=== PATIENT | female | born 1985 | race Caucasian/White ===

== ENCOUNTER 2021-05-12 09:32 | Emergency (ER) | payer MEDICAID, SELFPAY ==
--- NOTE | ~2021-05-12 | XR_ITS ---
EXAMINATION: XR HAND, RIGHT CLINICAL INFORMATION: Abscess. IVDA. COMPARISON: Left hand films dated 02/08/2019. TECHNIQUE: Four views of the right hand. FINDINGS: Prominent focal soft tissue swelling is seen overlying the dorsum of the hand. There may also be diffuse soft tissue swelling involving the second through fifth digits. No associated radiopaque foreign body is seen. The underlying bony structures are intact and no evidence of acute fracture, dislocation, abnormal periosteal reaction, or focal lytic/destructive bone lesion is seen. XR/XR hand RT 2V IMPRESSION: Prominent soft tissue swelling over the dorsum of the hand and probably diffusely involving the second through fifth digits. No acute bone findings.
[2021-05-12 09:53] VITALS: BP 122/68; PULSE 92; RESP 18; TEMP 36.7; O2SAT 96; BMI 25.6
--- NOTE | 2021-05-12 10:00 | ED_ITS ---
HPI - Skin/Abscess/Foreign Bdy General Chief complaint: Skin/Abscess/Foreign Body Stated complaint: ABSCESS Time Seen by Provider: 05/12/21 09:54 Source: patient Mode of arrival: ambulatory Limitations: no limitations History of Present Illness HPI narrative: 35-year-old female with a past medical history of IV drug abuse here with complaints of right hand swelling and pain for 1 week. Patient feels like she has had subjective fevers and chills at home has not checked her temperature. She is using IV heroin daily. Denies cocaine use. Related Data Previous Rx's Medication Instructions Recorded doxycycline monohydrate 100 mg 100 mg PO BID #20 tab 05/12/21 tablet Allergies Allergy/AdvReac Type Severity Reaction Status Date / Time amoxicillin [AMOXICILLIN] Allergy Unknown UNKNOWN Verified 05/12/21 09:55 Penicillins [PENICILLINS] Allergy Unknown UNKNOWN Unverified 03/30/20 17:08 Review of Systems Review of Systems: Yes all other systems are reviewed and are negative Constitutional: Constitutional: Reports no additional constitutional complaints, Denies body ache(s), Denies chills, Denies fever(s), Denies headache(s) and Denies weakness Eyes: Eyes: Reports no additional eye complaints and Denies change in vision ENT: Reports system reviewed and no additional complaints, except as documented, Denies dizziness, Denies headache(s), Denies nasal congestion, Denies nasal discharge and Denies neck pain Cardiovascular: Cardiovascular: Reports no additional cardiovascular complaints, Denies chest pain, Denies leg edema and Denies dyspnea Respiratory: Respiratory: Reports no additional respiratory complaints, Denies cough and Denies dyspnea Gastrointestinal: Gastrointestinal: Reports no additional gastrointestinal com plaints, Denies abdominal pain, Denies diarrhea, Denies nausea and Denies vomiting Genitourinary: Genitourinary: Reports no additional female genitourinary complaints and Denies urinary incontinence Musculoskeletal: Musculoskeletal: Reports no additional musculoskeletal complaints, Denies back pain, Denies arthralgias, Denies joint swelling, Denies neck pain, Denies numbness and Denies tingling Integumentary/Breasts: Skin/Breast: Reports system reviewed and no additional complaints, except as docu, Reports swelling, Reports erythema and Denies rash Neurologic: Reports system reviewed and no additional complaints, except as documented, Denies Abnormal speech present, Denies dizziness, Denies headache(s), Denies numbness, Denies tingling and Denies weakness PMFSH Past Medical History Attestation statement: The following information was validated with the patient. Source: old records reviewed and nursing notes reviewed Medical History No known health problems Social History Social History Advance Directives: No Advance Directives Information Provided: No Patient : No Physical Exam Vital Signs: Vital Signs: Last Vital Signs Temp 98.0 F 05/12/21 09:53 Pulse 92 05/12/21 09:53 Resp 18 05/12/21 11:36 BP 122/68 05/12/21 09:53 Pulse Ox 96 05/12/21 09:53 Body Mass Index 25.6 Const: General: cooperative, healthy appearing, comfortable and no acute distress Orientation/consciousness: patient oriented x3 Limitations: no limitations HENMT: Head: Yes normal to inspection Ears: hearing grossly normal bilaterally General nose exam: Normal external nose present Face and sinus: Yes normal facial exam Mouth: Normal oral and palatal mucosa present Throat: Yes posterior oropharynx normal Eyes: General: appearance normal, both eyes and all related structures P upils: Equal, round and reactive pupils present Neck: Neck: Yes normal visual inspection Chest: Chest palpation & inspection: normal inspection of the chest Resp: Effort & Inspection: normal respiratory effort Auscultation: clear to auscultation bilaterally Cardio: Rate: regular rate Rhythm: regular rhythm Peripheral pulses: Peripheral pulses 2+ throughout GI: Inspection: Yes normal to inspection Palpation (GI): Soft to palpation and nontender Auscultation: normal bowel sounds Back/Spine/Pelvis: Thoracic/Lumbar Spine: thoracic and lumbar spine normal to inspection Skin: General skin exam: no rashes or lesions noted Neuro: General: patient oriented x3, no focal motor deficits and normal sensation to monofilament Cranial nerves: Yes Equal, round and reactive pupils present Cognition (Neuro): normal cognition Speech: No Abnormal speech present Gait exam (Neuro): Normal gait present Motor exam (neuro): 5/5 motor strength present throughout Extrem: Other: Fluctuance, warmth, to the dorsal aspect of the right hand. Patient is right-hand dominant. Sensation is intact distally. There is slight pain with flexion and extension of the wrist. General: Yes normal to inspecti on, Yes no pedal edema and Yes no calf tenderness Course Course Course Narrative: 35-year-old female here with complaints of right hand pain, swelling and redness with subjective fevers and chills at home. Patient is right-handed with a history of IV drug abuse.. Exam is consistent with an abscess over the dorsal aspect the right hand. There is no pain with flexion and extension of the wrist so less likely tenosynovitis or septic arthritis. Therefore will need I&D of abscess, x-ray to rule out foreign body and p.o. antibiotics 1145-patient met with the care team and she was given outpatient resources for methadone clinic. Not interested in inpatient detox. Recommended return in 48 hours for wound check. Reviewed worrisome signs and symptoms such as streaking of the hand, fever, difficulty with range of motion. Comfortable discharge home. MDM - Skin/Abscess/Foreign Bdy Medical Records Attestation: I reviewed the patient's medical records. Lab Data Attestation: I reviewed the patient's lab results. Imaging Data hand xray: Attestation: I personally reviewed and interpreted this imaging study as follows: Radiologist's impression: FINDINGS: Prominent focal soft tissue swelling is seen overlying the dorsum of the hand. There may also be diffuse soft tissue swelling involving the second through fifth digits. No associated radiopaque foreign body is seen. The underlying bony structures are intact and no evidence of acute fracture, dislocation, abnormal periosteal reaction, or focal lytic/destructive bone lesion is seen. XR/XR hand RT 2V IMPRESSION: Prominent soft tissue swelling over the dorsum of the hand and probably diffusely involving the second through fifth digits. No acute bone findings. Procedures Abscess I/D Site: hand Side (if applicable): right Local Anesthetic: lidocaine 2% Amount of anesthesia used (mL): 5 Technique: incised with blade Amount of fluid expressed (mL): 20 Sent for culture/gram staining?: No Irrigation: No Packing used?: iodoform Discharge Plan Discharge Clinical Impression: Abscess of skin or subcutaneous tissue Patient Disposition: Home, Self-Care Instructions: Abscess (ED) Additional Instructions: Warm compresses Packing removal and wound check in 48 hours Return for increasing redness of the arm, fever greater than 100.4 Prescriptions: New doxycycline monohydrate 100 mg tablet 100 mg PO BID Qty: 20 RF: 0 Referrals: Physician,None [Primary Care Provider] - 2 days
[2021-05-12] MEDS: Lidocaine HCl 2 % MPF 5 ML VIAL SUBCUT (10:04)
[2021-05-12] MEDS: Lidocaine 4 % Cream KIT 1 APPL TOPICAL (10:04)
[2021-05-12] MEDS: Ketorolac Tromethamine 60 MG/2 ML VIAL IM (10:04)
--- NOTE | 2021-05-12 11:29 | MHC.RECOVSUP ---
Recovery Support note: Patient is a 35 year old Israeli speaking female who presented [place] [facility] [place] due to an [place]. This signwriter met with patient to discuss recovery supports and treatment options. Patient reports she was previously receiving methadone through [facility] in [place]. Patient states that the dose was too long and she would still feel withdrawal after dosing. Patient reports the clinic would not raise her dose due to her taking prescribed benzodiazepines. Patient reports she is interested in restarting methadone. Discussed methadone clinics with patient. Patient accepted information on clinics in the area. Discussed outpatient reports supports with patient. Patient reports she is familiar with local recovery centers and that she finds [facility] to be very supportive. Encouraged patient to continue to utilize supports in place and to contact methadone clinics on Friday morning or present as a walk-in. Patient acknowledged. Discussed case with patient's ED provider.
[2021-05-12 11:36] VITALS: RESP 18
== END 2021-05-12 12:08 | disposition home or self-care (01) ==
PROVIDERS: Emergency Provider Emergency Medicine
DX: L02.511 Cutaneous abscess of right hand (principal); F11.10 Opioid abuse, uncomplicated; Z79.899 Other long term (current) drug therapy
CPT/HCPCS: 10060; 73120; 96372; 99283; 99284; J1885

== ENCOUNTER 2021-06-04 19:50 | Emergency (ER) | payer MEDICAID, SELFPAY ==
--- NOTE | ~2021-06-04 | XR_ITS ---
EXAMINATION: XR FOREARM, RIGHT CLINICAL INFORMATION: History of intravenous drug use with a right antecubital abscess. Rule out foreign body. COMPARISON: No similar priors. TECHNIQUE: AP and lateral views of the right forearm were obtained. FINDINGS: In the anterior aspect of the distal arm at about 7 cm from the elbow joint there is a 0.3 cm radiodense body situated at 0.2 cm from the cortical surface of the distal humerus. No evidence of acute fractures or malalignment. There is diffuse soft tissue edema. XR/XR forearm RT 2V IMPRESSION: Indeterminate radiopaque body within the deep soft tissues of the distal arm, possibly a soft tissue calcification from prior trauma or vasculature. Although a foreign body cannot be entirely excluded. There is diffuse soft tissue edema. No acute fractures or malalignment.
[2021-06-04 19:57] VITALS: BP 138/90; PULSE 80
[2021-06-04 21:40] VITALS: BP 120/77; PULSE 79; RESP 18; TEMP 36.8; O2SAT 98; BMI 29.2
--- NOTE | 2021-06-04 22:36 | ED_ITS ---
HPI - General Adult General Chief complaint: Skin/Abscess/Foreign Body Stated complaint: rt arm Time Seen by Provider: 06/04/21 22:23 Source: patient and EMS Mode of arrival: EMS Limitations: no limitations History of Present Illness HPI narrative: 35-year-old female history of alcohol abuse, IV drug abuse patient came in from detox program for evaluation of her right forearm abscess from attempt to IV use in this area, patient also drink alcohol every day last drink was yesterday patient is suffering from withdrawal symptoms. Related Data Previous Rx's Medication Instructions Recorded doxycycline monohydrate 100 mg 100 mg PO BID #20 tab 05/12/21 tablet clindamycin HCl 150 mg capsule 150 mg PO TID 10 Days #30 cap 06/05/21 Allergies Allergy/AdvReac Type Severity Reaction Status Date / Time amoxicillin [AMOXICILLIN] Allergy Unknown UNKNOWN Verified 05/12/21 09:55 Penicillins [PENICILLINS] Allergy Unknown UNKNOWN Unverified 03/30/20 17:08 Review of Systems Review of Systems: All other systems are reviewed and are negative Constitutional: Reports as per HPI and Reports no additional constitutional complaints Eyes: Reports as per HPI and Reports no additional eye complaints Reports system reviewed and no additional complaints, except as documented Cardiovascular: Reports as per HPI and Reports no additional cardiovascular complaints Respiratory: Reports as per HPI and Reports no additional respiratory complaints Gastrointestinal: Reports as per HPI and Reports no additional gastrointestinal complaints Genitourinary: Reports no additional female genitourinary complaints Musculoskeletal: Reports no additional musculoskeletal complaints Skin/Breast: Reports system reviewed and no additional complaints, except as docu Psychiatric: Reports no additional psychiatric complaints Endocrine: Reports no additional endocrine complaints Hematologic/Lymphatic: Reports no additional hematologic/lymphatic complaints Allergic/Immunologic: Reports no additional allergic/immunologic complaints Reports system reviewed and no additional complaints, except as documented and Reports Abnormal speech present [facility] Past Medical History Medical History No known health problems Social History Social History Alcohol intake: current Alcohol intake frequency: does not drink Patient Tobacco Use Status: Never used Tobacco Use of substances other than those prescribed or required for medical reasons: No Advance Directives: No Patient : No Physical Exam Vital Signs: Vital Signs: Last Vital Signs Temp 98.4 F 06/04/21 22:55 Pulse 90 06/04/21 22:55 Resp 14 06/04/21 22:55 BP 121/75 06/04/21 22:55 Pulse Ox 96 06/04/21 22:55 Body Mass Index 29.2 vital signs have been reviewed as appeared to be correct. Blood pressure normal. Heart rate normal. Respiration rate normal. Temperature normal. Oxygen saturation normal. Appearance: Alert. Oriented X3. Anxious. Head: Normal external exam. Normocephalic. Atraumatic. No Moon signs noted. No raccoon eyes noted Eyes: PERRLA. EOMI. Conjunctiva and sclera normal. Eyelids normal. ENT: Right erythematous TM.. Pharynx normal. Uvula midline. Moist mucous membranes. No trismus noted. No drooling noted. No muffled voice noted. Neck: Normal inspection. Neck supple. FROM. No adenopathy. Thyroid Normal. No meningeal signs. No neck mass noted. CVS: Normal heart rate and rhythm. Heart sound normal. No murmurs noted. Pulses normal throughout. Respiratory: No respiratory distress. Painless inspiration. Breath sounds normal. No wheezes/rales/rhonchi noted. Chest nontender. No accessory muscle usage noted or decreased air movement noted. Abdomen: Soft and nontender. Bowel sounds normal in all 4 quadrants. No distention noted. No organomegaly noted. No visible injury noted. Back: No CVA tenderness. Full range of motion noted. Skin: Skin warm and dry. Normal skin color. Normal skin turgor. No rashes/lesions/lacerations noted. Extremities: IV perez in both upper extremities, 3 x 4 cm fluctuating abscess in the right forearm on the radial side just distal to the antecubital fossa. Neuro: Oriented X 3. Anxious, mild bilateral hand tremors. Cranial nerve exam: II-XII are grossly intact No motor deficit. No sensory deficit. Reflexes normal. Course Course Course Narrative: assessment and plan. 35-year-old female history of alcohol abuse/ IV drug abuse came in with right forearm abscess, x-ray questioning foreign body versus calcification, patient status post I&D no palpable or visible foreign body in the wound please refer to procedure note, patient will be started on clindamycin due to allergy to penicillins and doxycycline. Patient is showing mild symptoms of alcohol withdrawal patient is responding well to Ativan, detox At [facility] is willing to take the patient back if she is medically cleared. Physical exam also revealed a right ear infection which should be covered by clindamycin prescribed to the patient. Procedures Abscess I/D Site: upper extremity ( The right upper forearm distal to the AC at the radial side.) Side (if applicable): right Local Anesthetic: lidocaine 1% Amount of anesthesia used (mL): 5 Technique: incised with blade Amount of fluid expressed (mL): 3 Sent for culture/gram staining?: No Irrigation: No Packing used?: none Discharge Plan Discharge Clinical Impression: Abscess of skin or subcutaneous tissue Qualifiers: Site of cutaneous abscess of extremity: upper extremity Laterality: right Patient Disposition: Xfer [facility] Transfer Details: [place] detox. Instructions: Abscess (ED), Alcohol Withdrawal (ED) Prescriptions: New clindamycin HCl 150 mg capsule 150 mg PO TID 10 Days Qty: 30 RF: 0 No Action doxycycline monohydrate 100 mg tablet 100 mg PO BID Qty: 20 RF: 0 Referrals: Physician,Unknown J [Primary Care Provider] - 2 days
[2021-06-04] MEDS: LORazepam 1 MG TABLET PO (22:44)
[2021-06-04] MEDS: Lidocaine HCl 1 % MPF 5 ML VIAL SUBCUT (22:44)
--- NOTE | 2021-06-04 22:46 | PC.NURSE ---
pt medicated per Sep. pt has positive cms. pt a&o, no sob or chest pain.
[2021-06-04 22:55] VITALS: BP 121/75; PULSE 90; RESP 14; TEMP 36.9; O2SAT 96
[2021-06-05 00:17] VITALS: RESP 20
--- NOTE | 2021-06-05 00:18 | PC.NURSE ---
Several attempts to call report to emigdio richardson in [facility]. No answer. Will discharge per provider. Will review discharge instruction and medications. Will medicate per sep.
--- NOTE | 2021-06-05 00:20 | PC.NURSE ---
call made at 12:00am and 12:15am with no answer.
[2021-06-05] MEDS: LORazepam 1 MG TABLET 2 MG PO (01:08)
[2021-06-05] MEDS: Clindamycin HCL 300 MG CAPSULE PO (01:08)
== END 2021-06-05 01:36 | disposition skilled nursing facility (03) ==
PROVIDERS: Emergency Provider Emergency Medicine
DX: L02.413 Cutaneous abscess of right upper limb (principal); F19.10 Other psychoactive substance abuse, uncomplicated
CPT/HCPCS: 10060; 73090; 99284

== ENCOUNTER 2021-07-23 13:16 | Emergency (ER) | payer MEDICAID, SELFPAY ==
--- NOTE | ~2021-07-23 | XR_ITS ---
EXAMINATION: XR ANKLE, LEFT CLINICAL INFORMATION: Status post fall with pain to left ankle. COMPARISON: None TECHNIQUE: AP, lateral, and mortise views of the left ankle. FINDINGS: There is oblique minimally displaced fracture distal fibula with moderate lateral malleolar soft tissue swelling. No additional fractures seen. Ankle mortise and subtalar joints are normal. XR/XR ankle LT min 3V IMPRESSION: Oblique fracture distal fibula with moderate lateral malleolar soft tissue swelling.
[2021-07-23 13:20] VITALS: BP 120/70; PULSE 86; O2SAT 99
[2021-07-23 14:17] VITALS: PULSE 92; RESP 18; O2SAT 99; BMI 32.9
--- NOTE | 2021-07-23 18:14 | ED_ITS ---
HPI - Extremity Injury (Lower) General Chief Complaint: Extremity Injury, Lower Stated Complaint: L ANKLE INJURY FROM FALL T-1 Time Seen by Provider: 07/23/21 13:34 Source: patient Mode of arrival: ambulatory Limitations: no limitations History of Present Illness HPI Narrative: 35-year-old female here after slip and fall on the ice yesterday causing an inversion injury to her left ankle. No head strike or loss of consciousness. Now with pain which is worsened with weight-bearing. Patient tells me she has history of IVDA but has been sober >2 months. Related Data Previous Rx's Medication Instructions Recorded doxycycline monohydrate 100 mg 100 mg PO BID #20 tab 05/12/21 tablet clindamycin HCl 150 mg capsule 150 mg PO TID 10 Days #30 cap 06/05/21 ibuprofen 600 mg tablet 600 mg PO Q8H PRN #20 tab 07/23/21 oxycodone 5 mg tablet 5 mg PO Q8H PRN #8 tab 07/23/21 Allergies Allergy/AdvReac Type Severity Reaction Status Date / Time amoxicillin [AMOXICILLIN] Allergy Unknown UNKNOWN Verified 07/23/21 18:56 Penicillins [PENICILLINS] Allergy Unknown UNKNOWN Verified 07/23/21 18:56 Review of Systems Review of Systems: Yes all other systems are reviewed and are negative Constitutional: Constitutional: Reports no additional constitutional complaints, Denies body ache(s), Denies chills, Denies fever(s), Denies headache(s) and Denies weakness Eyes: Eyes: Reports no additional eye complaints and Denies change in vision ENT: Reports system reviewed and no additional complaints, except as documented, Denies dizziness, Denies headache(s), Denies nasal congestion, Denies nasal discharge and Denies neck pain Cardiovascular: Cardiovascular: Reports no additional cardiovascular complaints, Denies chest pain, Denies leg edema and Denies dyspnea Respiratory: Respiratory: Reports no additional respiratory complaints, Denies cough and Denies dyspnea Gastrointestinal: Gastrointestinal: Reports no additional gastrointestinal c omplaints, Denies abdominal pain, Denies diarrhea, Denies nausea and Denies vomiting Genitourinary: Genitourinary: Reports no additional female genitourinary complaints and Denies urinary incontinence Musculoskeletal: Musculoskeletal: Reports no additional musculoskeletal complaints, Denies back pain, Reports arthralgias, Reports joint swelling, Denies neck pain, Denies numbness and Denies tingling Integumentary/Breasts: Skin/Breast: Reports system reviewed and no additional complaints, except as docu and Denies rash Neurologic: Reports system reviewed and no additional complaints, except as documented, Denies Abnormal speech present, Denies dizziness, Denies headache(s), Denies numbness, Denies tingling and Denies weakness PMFSH Past Medical History Attestation statement: The following information was validated with the patient. Source: old records reviewed and nursing notes reviewed Medical History No known health problems Social History Social History Alcohol intake: current Alcohol intake frequency: does not drink Patient Tobacco Use Status: Never used Tobacco Advance Directives: No Advance Directives Information Provided: Yes Patient : No Physical Exam Vital Signs: Vital Signs: Last Vital Signs Pulse 92 07/23/21 14:17 Resp 18 07/23/21 14:17 Pulse Ox 99 07/23/21 14:17 BMI result Body Mass Index 32.9 Const: General: cooperative, healthy appearing, comfortable and no acute distress Orientation/consciousness: patient oriented x3 Limitations: no limitations HENMT: Head: Yes normal to inspection Ears: hearing grossly normal bilaterally General nose exam: Normal external nose present Face and sinus: Yes normal facial exam Mouth: Normal oral and palatal mucosa present Throat: Yes posterior oropharynx normal Eyes: General: appearance normal, both eyes and all related structures Pupils: Equal, round and reactive pupils present Neck: Neck: Yes normal visual inspection Chest: Chest palpation & inspection: normal inspection of the chest Resp: Effort & Inspection: normal respiratory effort Auscultation: clear to auscultation bilaterally Cardio: Rate: regular rate Rhythm: regular rhythm Peripheral pulses: Peripheral pulses 2+ throughout GI: Inspection: Yes normal to inspection Palpation (GI): Soft to palpation and nontender Auscultation: normal bowel sounds Back/Spine/Pelvis: Thoracic/Lumbar Spine: thoracic and lumbar spine normal to inspection Skin: General skin exam: no rashes or lesions noted Neuro: General: patient oriented x3, no focal motor deficits and normal sensation to monofilament Cranial nerves: Yes Equal, round and reactive pupils present Cognition (Neuro): normal cognition Speech: No Abnormal speech present Gait exam (Neuro): Normal gait present Motor exam (neuro): 5/5 motor strength present throughout Extrem: Other: Swelling, tenderness, ecchymosis to lateral aspect of left ankle with limited ROM d/t pain. +pulses. NV intact distally. General: Yes normal to inspection Course Course Course Narrative: 35 yo female here with L ankle pain s/p slip and fall with swelling, pain and ecchymosis with limited weight bearing. X-ray shows oblique fracture of distal fibula. Will place in posterior/stirrup splint, crutches for ambulation. Patient has h/o IVDA but is currently sober. We discussed using narcotics at home carefully, trying to use motrin first. She does not plan on using drugs. Recommend follow-up outpatient with orthopedics. Reviewed worrisome signs and symptoms of when to return to the emergency department. Comfortable discharge home. MDM - Extremity Injury (Lower) Differential Diagnosis Differential diagnosis: Likely ankle sprain and strain and ankle fracture Medical Records Attestation: I reviewed the patient's medical records. Lab Data Attestation: I reviewed the patient's lab results. Imaging Data ankle x-ray: Attestation: I personally reviewed and interpreted this imaging study as follows: Radiologist's impression: EXAMINATION: XR ANKLE, LEFT CLINICAL INFORMATION: Status post fall with pain to left ankle.? COMPARISON: None? TECHNIQUE: AP, lateral, and mortise views of the left ankle. FINDINGS: There is oblique minimally displaced fracture distal fibula with moderate lateral malleolar soft tissue swelling. No additional fractures seen. Ankle mortise and subtalar joints are normal.? XR/XR ankle LT min 3V IMPRESSION: Oblique fracture distal fibula with moderate lateral malleolar soft tissue swelling. Procedures Orthopedic Splinting/Casting Injury #1: Side: left Lower Extremity Injury Location: lower leg Lower Extremity Immobilizer: posterior splint and stirrup splint Other Orthopedic Equipment: crutches Discharge Plan Discharge Clinical Impression: Closed fibular fracture Qualifiers: Encounter type: initial encounter Fibula location: distal Laterality: left Patient Disposition: Home, Self-Care Instructions: Leg Fracture (ED) Additional Instructions: Splint stays on all times. Do not get it wet. Do not ambulate on the extremity and use the crutches with nonweightbearing You have a lot of swelling and a need to start elevating this daily on 3 or more pillows Call Orthopedics for follow-up this week Prescriptions: New ibuprofen 600 mg tablet 600 mg PO Q8H PRN (Reason: pain) Qty: 20 RF: 0 oxycodone 5 mg tablet 5 mg PO Q8H PRN (Reason: pain) Qty: 8 RF: 0 No Action doxycycline monohydrate 100 mg tablet 100 mg PO BID Qty: 20 RF: 0 clindamycin HCl 150 mg capsule 150 mg PO TID 10 Days Qty: 30 RF: 0 Referrals: Raymond Pierce MD [Physician] - 2 days Interventions: ED Discharge Assessment Last Done: 07/23/21 19:44 Discharge Date/Time: 07/23/21 19:44
[2021-07-23] MEDS: Ketorolac Tromethamine 60 MG/2 ML VIAL IM (18:57)
== END 2021-07-23 19:44 | disposition home or self-care (01) ==
PROVIDERS: Emergency Provider Emergency Medicine
DX: S82.432A Displaced oblique fracture of shaft of left fibula, initial encounter for closed fracture (principal); W00.0XXA Fall on same level due to ice and snow, initial encounter; Y93.01 Activity, walking, marching and hiking; Y92.9 Unspecified place or not applicable; Y99.9 Unspecified external cause status
CPT/HCPCS: 29515; 73610; 96372; 99283; 99284; J1885

== ENCOUNTER 2022-01-24 01:11 | Emergency (ER) | payer MEDICAID, SELFPAY ==
[2022-01-24 01:16] VITALS: BP 116/66; PULSE 77; RESP 15; TEMP 36.4; O2SAT 97; BMI 29.2
--- NOTE | 2022-01-24 02:05 | ED_ITS ---
HPI - General Adult General Chief complaint: General Medical Stated complaint: Arms/hands pain Time Seen by Provider: 01/24/22 02:05 Source: patient Mode of arrival: ambulatory Limitations: no limitations History of Present Illness HPI narrative: Patient's history of substance abuse comes here for multiple complaints nonspecific complaining of bilateral arm pain when she takes a deep breath IVDA perez noticed on the forearms no fever no chills no distress at this time Related Data Previous Rx's Medication Instructions Recorded doxycycline monohydrate 100 mg 100 mg PO BID #20 tabs 05/12/21 tablet clindamycin HCl 150 mg capsule 150 mg PO TID 10 days #30 caps 06/05/21 ibuprofen 600 mg tablet 600 mg PO Q8H PRN pain #20 tabs 07/23/21 oxycodone 5 mg tablet 5 mg PO Q8H PRN pain #8 tabs 07/23/21 cephalexin 500 mg capsule 500 mg PO QID 10 days #40 caps 01/24/22 sulfamethoxazole 800 1 tab PO BID #20 tabs 01/24/22 mg-trimethoprim 160 mg tablet (Bactrim DS) Allergies Allergy/AdvReac Type Severity Reaction Status Date / Time amoxicillin [AMOXICILLIN] Allergy Unknown UNKNOWN Verified 07/23/21 18:56 Penicillins [PENICILLINS] Allergy Unknown UNKNOWN Verified 07/23/21 18:56 doxycycline Allergy Gastrointestinal Verified 01/24/22 01:23 Upset Review of Systems Review of Systems: Yes all other systems are reviewed and are negative [facility] Past Medical History Medical History No known health problems Social History Social History Alcohol intake: current Alcohol intake frequency: does not drink Patient Tobacco Use Status: Never used Tobacco Advance Directives: No Physical Exam ED Vital Signs: Vital Signs - 24 hr 01/24/22 01:16 01/24/22 02:12 Temperature 97.5 F 98.2 F Pulse Rate 77 70 Respiratory Rate 15 16 Blood Pressure 116/66 93/62 Pulse Oximetry 97 98 Oxygen Delivery Method Room Air Room Air BMI result Body Mass Index 29.2 Appearance: Alert. Oriented X3. No acute distress. ENT: Pharynx normal. Oral Mucosa moist Neck: Normal inspection. Neck supple. CVS: Normal heart rate and rhythm. Pulses normal. Respiratory: No respiratory distress. Equal air entry bilateral, no wheezing/rales/rhonchi Skin: Skin warm and dry. Normal skin color. Normal skin turgor. Abdomen: Soft nontender Extremities: No lower extremity edema. IVDA track perez on both forearms with slight inflammation specially on the right side Neuro: Oriented X 3. Medical Decision Making MDM Narrative Medical decision making narrative: Patient IVDA user comes for nonspecific complaints slight cellulitis on the right hand will discharge patient home on Keflex Discharge Plan Discharge Clinical Impression: Anxiety, Cellulitis Patient Disposition: Home, Self-Care Instructions: Cellulitis (ED), Anxiety (ED) Additional Instructions: Stop using drugs and alcohol Antibiotic as advised Follow with PCP Prescriptions: New cephalexin 500 mg capsule 500 mg PO QID 10 Days Qty: 40 0RF sulfamethoxazole-trimethoprim [Bactrim DS] 800-160 mg tablet 1 tab PO BID Qty: 20 0RF No Action doxycycline monohydrate 100 mg tablet 100 mg PO BID Qty: 20 0RF clindamycin HCl 150 mg capsule 150 mg PO TID 10 Days Qty: 30 0RF ibuprofen 600 mg tablet 600 mg PO Q8H PRN (Reason: pain) Qty: 20 0RF oxycodone 5 mg tablet 5 mg PO Q8H PRN (Reason: pain) Qty: 8 0RF Interventions: ED Discharge Assessment Last Done: 01/24/22 02:43 Discharge Date/Time: 01/24/22 02:45
[2022-01-24 02:12] VITALS: BP 93/62; PULSE 70; RESP 16; TEMP 36.8; O2SAT 98
--- NOTE | 2022-01-24 02:28 | PC.NURSE ---
PATIENT ASK FOR GINGERALE AND CRACKERS ,AND A SANDWICH .
[2022-01-24] MEDS: cephALEXin 500 MG CAPSULE PO (02:39)
[2022-01-24] MEDS: Sulfamethox/Trimeth 800/160 TABLET 1 TAB PO (02:39)
[2022-01-24] MEDS: hydrOXYzine HCL 50 MG TABLET PO (02:41)
== END 2022-01-24 02:45 | disposition home or self-care (01) ==
PROVIDERS: Emergency Provider Internal Medicine
DX: L03.113 Cellulitis of right upper limb (principal); M79.601 Pain in right arm; M79.602 Pain in left arm; F41.1 Generalized anxiety disorder; F43.0 Acute stress reaction; Z79.899 Other long term (current) drug therapy
CPT/HCPCS: 99283

== ENCOUNTER 2022-06-09 10:23 | Emergency (ER) | payer MEDICAID, SELFPAY ==
--- NOTE | ~2022-06-09 | XR_ITS ---
EXAMINATION: XR HAND, LEFT CLINICAL INFORMATION: Pain. Question abscess COMPARISON: None TECHNIQUE: PA, lateral, and oblique views of the left hand. FINDINGS: There is significant dorsal hand soft tissue swelling with no gas seen. Visualized bones and joints are maintained normal. The soft tissues are normal.. XR/XR hand LT min 3V IMPRESSION: Moderate dorsal hand soft tissue swelling without any visualization of gas.
[2022-06-09 11:37] VITALS: BP 113/56; PULSE 95; RESP 16; TEMP 36.1; O2SAT 98; BMI 29.2
--- NOTE | 2022-06-09 11:44 | ED.GENADULT ---
HPI - General Adult General Chief complaint: Extremity Problem Stated complaint: absess on L hand Time Seen by Provider: 06/09/22 17:44 Source: patient Mode of arrival: ambulatory Limitations: no limitations Related Data Previous Rx's Medication Instructions Recorded doxycycline monohydrate 100 mg 100 mg PO BID #20 tabs 05/12/21 tablet clindamycin HCl 150 mg capsule 150 mg PO TID 10 days #30 caps 06/05/21 ibuprofen 600 mg tablet 600 mg PO Q8H PRN pain #20 tabs 07/23/21 oxycodone 5 mg tablet 5 mg PO Q8H PRN pain #8 tabs 07/23/21 cephalexin 500 mg capsule 500 mg PO QID 10 days #40 caps 01/24/22 sulfamethoxazole 800 1 tab PO BID #20 tabs 01/24/22 mg-trimethoprim 160 mg tablet (Bactrim DS) clindamycin HCl 150 mg capsule 450 mg PO Q8H 5 days #45 caps 06/09/22 ibuprofen 600 mg tablet 600 mg PO Q6H PRN pain #60 tabs 06/09/22 Allergies Allergy/AdvReac Type Severity Reaction Status Date / Time amoxicillin [AMOXICILLIN] Allergy Unknown UNKNOWN Verified 07/23/21 18:56 Penicillins [PENICILLINS] Allergy Unknown UNKNOWN Verified 07/23/21 18:56 doxycycline Allergy Gastrointestinal Verified 01/24/22 01:23 Upset PMFSH Past Medical History Medical History No known health problems Social History Social History Alcohol intake: current Alcohol intake frequency: does not drink Patient Tobacco Use Status: Never used Tobacco Advance Directives: No Advance Directives Information Provided: No Physical Exam ED Vital Signs: Vital Signs - 24 hr 06/09/22 19:35 Temperature 98.4 F Pulse Rate 97 Respiratory Rate 18 Blood Pressure 128/58 L Pulse Oximetry 96 Oxygen Delivery Method Room Air BMI result Body Mass Index 29.2 Course Course Course Narrative: RME performed by myself, Marina Carpenter PA-C. Patient is a 36 year old female IVDU presenting to the emergency department with left hand swelling. Patient's left hand is obviously abscessed with surrounding cellulitis. CBC, CMP, Blood cultures, and lactic acid ordered. Charge nurse made aware of patient acuity. Patient placed back in the waiting room pending bed availability. Patient seen and discharged by JAMIL Gerardo who created and completed a separate note. Medications Administered Discontinued Medications Generic Name Dose Route Start Last Admin Trade Name Freq PRN Reason Stop Dose Admin Clindamycin HCl 450 mg 06/09/22 19:02 06/09/22 19:49 Clindamycin Hcl 150 Mg Capsule PO 06/09/22 19:03 450 mg ONCE ONE Administration Ibuprofen 600 mg 06/09/22 19:11 06/09/22 19:20 Ibuprofen 600 Mg Tablet PO 06/09/22 19:12 600 mg ONCE ONE Administration Lidocaine HCl 2 ml 06/09/22 17:52 06/09/22 18:24 Lidocaine Hcl 2% 2 Ml Vial INFILTRATI 06/09/22 17:53 2 ml ONCE ONE Administration Lorazepam 2 mg 06/09/22 17:52 06/09/22 18:23 Lorazepam 1 Mg Tablet PO 06/09/22 17:53 2 mg ONCE ONE Administration Discharge Plan Discharge Clinical Impression: Cellulitis, Encounter for incision and drainage procedure Patient Disposition: Home, Self-Care Instructions: Cellulitis (ED), Abscess (ED), Abscess Follow-up (ED), Abscess Incision and Drainage (DC) Additional Instructions: You were evaluated for abscess to the left hand. We incised and drained this abscess. You asked us to stop the procedure before packing. Please take clindamycin 450 mg every 8 hours for the next 5 days. Take Motrin 600 mg every 8 hours as needed for pain management. Follow-up with detox. Thank you for choosing this emergency department for evaluation. Please follow-up with primary care physician as needed. Return to the emergency department for any new, concerning, or worsening symptoms. Prescriptions: New clindamycin HCl 150 mg capsule 450 mg PO Q8H 5 Days Qty: 45 0RF ibuprofen 600 mg tablet 600 mg PO Q6H PRN (Reason: pain) Qty: 60 0RF No Action doxycycline monohydrate 100 mg tablet 100 mg PO BID Qty: 20 0RF clindamycin HCl 150 mg capsule 150 mg PO TID 10 Days Qty: 30 0RF ibuprofen 600 mg tablet 600 mg PO Q8H PRN (Reason: pain) Qty: 20 0RF oxycodone 5 mg tablet 5 mg PO Q8H PRN (Reason: pain) Qty: 8 0RF cephalexin 500 mg capsule 500 mg PO QID 10 Days Qty: 40 0RF sulfamethoxazole-trimethoprim [Bactrim DS] 800-160 mg tablet 1 tab PO BID Qty: 20 0RF Interventions: ED Discharge Assessment Last Done: 06/09/22 19:52 Discharge Date/Time: 06/09/22 19:54
--- NOTE | 2022-06-09 17:51 | ED.EXTPRO ---
HPI - Extremity Problem General Chief complaint: Extremity Problem Stated complaint: absess on L hand Time Seen by Provider: 06/09/22 17:44 Source: patient Mode of arrival: ambulatory Limitations: no limitations History of Present Illness HPI Narrative: 36-year-old female presents for 3 days of left hand swelling and cellulitis. Patient infiltrated heroin to the site. Does not report any risk of foreign body. Patient is interested in detox at this time. MD Complaint: extremity pain and extremity swelling Onset (ago): day(s) (3) Pain Consistency: constant Location: left and upper extremity Severity scale (1-10): 10 Quality: aching Radiation: none Relieving factors: nothing Exacerbating factors: range of motion, exertion and palpation Associated symptoms: denies other symptoms Related Data Previous Rx's Medication Instructions Recorded doxycycline monohydrate 100 mg 100 mg PO BID #20 tabs 05/12/21 tablet clindamycin HCl 150 mg capsule 150 mg PO TID 10 days #30 caps 06/05/21 ibuprofen 600 mg tablet 600 mg PO Q8H PRN pain #20 tabs 07/23/21 oxycodone 5 mg tablet 5 mg PO Q8H PRN pain #8 tabs 07/23/21 cephalexin 500 mg capsule 500 mg PO QID 10 days #40 caps 01/24/22 sulfamethoxazole 800 1 tab PO BID #20 tabs 01/24/22 mg-trimethoprim 160 mg tablet (Bactrim DS) clindamycin HCl 150 mg capsule 450 mg PO Q8H 5 days #45 caps 06/09/22 ibuprofen 600 mg tablet 600 mg PO Q6H PRN pain #60 tabs 06/09/22 Allergies Allergy/AdvReac Type Severity Reaction Status Date / Time amoxicillin [AMOXICILLIN] Allergy Unknown UNKNOWN Verified 07/23/21 18:56 Penicillins [PENICILLINS] Allergy Unknown UNKNOWN Verified 07/23/21 18:56 doxycycline Allergy Gastrointestinal Verified 01/24/22 01:23 Upset Review of Systems Review of Systems: Constitutional: No Fever, No Chills ENT/Mouth: No Ear Pain, No Hoarseness, No sore throat Eyes: No Eye Pain, No Swelling, No Redness, No Foreign Body Cardiovascular: No Chest Pain, No SOB Respiratory: No Cough, No Dyspnea Gastrointestinal: No Nausea, No Vomiting, No Diarrhea, No abdominal Pain Genitourinary: No Dysuria, No Hematuria Musculoskeletal: positive left hand pain, No Myalgias, No Joint Swelling Skin: Positive left hand abscess and cellulitis, No Skin lacerations, No rash Neuro: No Weakness, No Numbness, No Paresthesias, No Loss of Consciousness, No Dizziness, No Headache Psych: No Anxiety/Panic, No Depression Heme/Lymph: no easy bruising, no Lymphadenopathy Endocrine: No Polyuria, No Polydipsia Yes all other systems are reviewed and are negative [facility] Past Medical History Attestation statement: The following information was validated with the patient. Source: old records reviewed Medical History No known health problems Social History Social History Alcohol intake: current Alcohol intake frequency: does not drink Patient Tobacco Use Status: Never used Tobacco Advance Directives: No Advance Directives Information Provided: No Physical Exam Vital Signs: Vital Signs: Last Vital Signs Temp 97.0 F 06/09/22 11:37 Pulse 95 06/09/22 11:37 Resp 16 06/09/22 11:37 BP 113/56 L 06/09/22 11:37 Pulse Ox 98 06/09/22 11:37 O2 Del Method 06/09/22 11:37 BMI result Body Mass Index 29.2 Appearance: Alert. Oriented X3. Anxiety, emotional distress. Eyes: Pupils equal, round and reactive to light. ENT: Pharynx normal. Neck: Normal inspection. Neck supple. CVS: Normal heart rate and rhythm. Pulses normal. Respiratory: No respiratory distress. Breath sounds normal. Abdomen: Soft and nontender. Skin: Abscess and induration measuring approximately 5 cm in diameter between the thumb and index finger on the dorsal aspect of the left hand. Skin warm and dry. Normal skin color. Normal skin turgor. Multiple fresh track perez to both arms Extremities: No lower extremity edema. Full range of motion to all digits. Full range of motion to wrist and elbow. Brisk capillary refill, equal pulses. Neuro: No motor deficit. No sensory deficit. Cranial nerves 2-12 intact. Course Course Course Narrative: 36-year-old female presents for abscess to the left hand. She infiltrated heroin about 3 days ago, noted redness and swelling, the pain is increased as well as the swelling. Patient states to be allergic to ?all antibiotics? and the last antibiotics that she received, ?big white pill, and green and blue pill caused a rash, she does not recall the name. She does know that she is allergic to penicillin, doxycycline and Keflex. Patient states to have significant anxiety, requesting Ativan 2 mg prior to I&D. Patient is not forthcoming with the amount of heroin that she uses on a daily basis. Patient is afebrile, appears nontoxic, with hemodynamically stable vital signs. X-rays negative for acute findings, ruling out osteo in foreign body. 18:50 patient prepped and draped in sterile fashion, patient crying and screaming prior to starting the procedure. Approximately 60 mL of purulent fluid expressed from the site. Patient screamed cried and kicked the wall throughout the entire procedure. Two RNs holding her hand. Patient wanted to stop mid procedure, and declined iodoform packing. Patient stated that she is interested in detox. I did reach out to the care team will consult with her. Will treat her with clindamycin. Patient is asking for muscle relaxers, pain management that is stronger than Tylenol or Motrin, and states that she is in 10/10 pain. I did offer her Tylenol, she requested Motrin which was 1 of her more reasonable requests. Order for Motrin 600 mg p.o.. Patient verbalized understanding of and agrees to plan of care discharge home. Verbalized understanding symptoms indicating need for emergent intervention Medications Administered Discontinued Medications Generic Name Dose Route Start Last Admin Trade Name Gabbie PRN Reason Stop Dose Admin Lidocaine HCl 2 ml 06/09/22 17:52 06/09/22 18:24 Lidocaine Hcl 2% 2 Ml Vial INFILTRATI 06/09/22 17:53 2 ml ONCE ONE Administration Lorazepam 2 mg 06/09/22 17:52 06/09/22 18:23 Lorazepam 1 Mg Tablet PO 06/09/22 17:53 2 mg ONCE ONE Administration MDM - Extremity (Nontraumatic) MDM Narrative Medical decision making narrative: Abscess, foreign body Differential Diagnosis Differential diagnosis: Likely cellulitis Medical Records Attestation: I reviewed the patient's medical records. Imaging Data Hand x-ray: Attestation: I personally reviewed and interpreted this imaging study as follows: Radiologist's impression: EXAMINATION: XR HAND, LEFT CLINICAL INFORMATION: Pain. Question abscess? COMPARISON: None? TECHNIQUE: PA, lateral, and oblique views of the left hand. FINDINGS: There is significant dorsal hand soft tissue swelling with no gas seen. Visualized bones and joints are maintained normal. The soft tissues are normal.. XR/XR hand LT min 3V IMPRESSION: Moderate dorsal hand soft tissue swelling without any visualization of gas. Procedures Abscess I/D Site: hand Side (if applicable): left Local Anesthetic: lidocaine 2% Amount of anesthesia used (mL): 2 Technique: incised with blade Amount of fluid expressed (mL): 60 Sent for culture/gram staining?: Yes Irrigation: No Packing used?: none Complications: pain Discharge Plan Discharge Clinical Impression: Cellulitis, Encounter for incision and drainage procedure Patient Disposition: Home, Self-Care Instructions: Cellulitis (ED), Abscess (ED), Abscess Follow-up (ED), Abscess Incision and Drainage (DC) Additional Instructions: You were evaluated for abscess to the left hand. We incised and drained this abscess. You asked us to stop the procedure before packing. Please take clindamycin 450 mg every 8 hours for the next 5 days. Take Motrin 600 mg every 8 hours as needed for pain management. Follow-up with detox. Thank you for choosing this emergency department for evaluation. Please follow-up with primary care physician as needed. Return to the emergency department for any new, concerning, or worsening symptoms. Prescriptions: New clindamycin HCl 150 mg capsule 450 mg PO Q8H 5 Days Qty: 45 0RF ibuprofen 600 mg tablet 600 mg PO Q6H PRN (Reason: pain) Qty: 60 0RF No Action doxycycline monohydrate 100 mg tablet 100 mg PO BID Qty: 20 0RF clindamycin HCl 150 mg capsule 150 mg PO TID 10 Days Qty: 30 0RF ibuprofen 600 mg tablet 600 mg PO Q8H PRN (Reason: pain) Qty: 20 0RF oxycodone 5 mg tablet 5 mg PO Q8H PRN (Reason: pain) Qty: 8 0RF cephalexin 500 mg capsule 500 mg PO QID 10 Days Qty: 40 0RF sulfamethoxazole-trimethoprim [Bactrim DS] 800-160 mg tablet 1 tab PO BID Qty: 20 0RF
[2022-06-09] MEDS: LORazepam 1 MG TABLET 2 MG PO (18:23)
--- NOTE | 2022-06-09 19:19 | MHC.CARE ---
CARE team met with pt at the request of the ED provider to provide pt with recovery resources, as pt had expressed interest in going to detox. Pt reported that she has been to detox before and is familiar with the process. She has also been to [facility] and had a positive experience with them. She was given a list of detox facilities and pamphlet for [facility] and will reach out to [facility] for support with getting into a treatment facility.
[2022-06-09] MEDS: Ibuprofen 600 MG TABLET PO (19:20)
[2022-06-09 19:35] VITALS: BP 128/58; PULSE 97; RESP 18; TEMP 36.9; O2SAT 96
[2022-06-09] MEDS: Clindamycin HCL 150 MG CAPSULE 450 MG PO (19:49)
== END 2022-06-09 19:54 | disposition home or self-care (01) ==
PROVIDERS: Emergency Provider Internal Medicine; PCP Family Medicine
DX: L02.512 Cutaneous abscess of left hand (principal); M79.642 Pain in left hand; Z79.899 Other long term (current) drug therapy
CPT/HCPCS: 10060; 73130; 87070; 87077; 87186; 87205; 99283

== ENCOUNTER 2023-10-30 03:33 | Observation (INO) | payer MEDICAID, SELFPAY ==
--- NOTE | ~2023-10-30 | CT_ITS ---
EXAMINATION: CT FACIAL BONES WITHOUT CONTRAST CLINICAL INFORMATION: Forehead cellulitis and swelling COMPARISON: None available. TECHNIQUE: Noncontrast multidetector helical imaging was performed through the maxillofacial bones. Coronal and sagittal reformatted images were created. This CT examination was performed using dose optimization techniques as appropriate, variously including the following: *Automated exposure control *Adjustment of mA and/or kV according to patient size (this includes techniques or standardized protocols for targeted exams where dose is matched to indication/reason for exam; i.e. extremities or head) *Use of iterative reconstruction technique DLP: 296 mGy-cm FINDINGS: There is subcutaneous edema in the bilateral periorbital and inferior frontal region. No discrete collection is seen. Milder subcutaneous edema is present in the bilateral zygomatic regions. No acute maxillofacial fractures are seen. Mild mucosal thickening of the maxillary sinuses inferiorly. Trace mucosal thickening of the sphenoid sinuses. Remaining paranasal sinuses are well-aerated. The infundibula and middle meati are patent. There is leftward deviation of the nasal septum anteriorly. The mandibular condyles are well-seated in the condylar fossa. Multiple dental caries are noted. The globes are intact, and there are no suspicious findings to suggest retrobulbar hemorrhage. Visualized portions of the brain parenchyma are unremarkable. CT/CT facial bones wo IV con IMPRESSION: Subcutaneous edema in the bilateral periorbital and inferior frontal region in keeping with history of cellulitis. No discrete collection identified. Milder subcutaneous edema in the bilateral zygomatic regions.
[2023-10-30 04:06] VITALS: BP 114/86; BP 119/69; PULSE 80; PULSE 86; RESP 14; TEMP 36.9; O2SAT 98; O2SAT 99; BMI 25.0
--- NOTE | 2023-10-30 04:11 | ED.GENADULT ---
HPI - General Adult General Chief complaint: General Medical Stated complaint: swollen face Time Seen by Provider: 10/30/23 04:00 Source: patient and EMS Mode of arrival: EMS Limitations: no limitations History of Present Illness HPI narrative: 37-year-old female homeless came in by ambulance for 1 day history of forehead swelling and bilateral periorbital, no fever, no chills, patient declined any sinusitis or nasal congestion or dental infection in the past. Related Data Previous Rx's ?Medication ?Instructions ?Recorded doxycycline monohydrate 100 mg 100 mg PO BID #20 tabs 05/12/21 tablet clindamycin HCl 150 mg capsule 150 mg PO TID 10 days #30 caps 06/05/21 ibuprofen 600 mg tablet 600 mg PO Q8H PRN pain #20 tabs 07/23/21 oxycodone 5 mg tablet 5 mg PO Q8H PRN pain #8 tabs 07/23/21 cephalexin 500 mg capsule 500 mg PO QID 10 days #40 caps 01/24/22 sulfamethoxazole 800 1 tab PO BID #20 tabs 01/24/22 mg-trimethoprim 160 mg tablet (Bactrim DS) clindamycin HCl 150 mg capsule 450 mg (3 x 150 mg) PO Q8H 5 days 06/09/22 #45 caps ibuprofen 600 mg tablet 600 mg PO Q6H PRN pain #60 tabs 06/09/22 Allergies Allergy/AdvReac Type Severity Reaction Status Date / Time amoxicillin [AMOXICILLIN] Allergy Unknown UNKNOWN Verified 10/30/23 04:08 doxycycline Allergy Unknown Gastrointestinal Verified 10/30/23 04:08 Upset Penicillins [PENICILLINS] Allergy Unknown UNKNOWN Verified 10/30/23 04:08 Review of Systems Review of Systems: All other systems are reviewed and are negative Constitutional: Reports as per HPI and Reports no additional constitutional complaints Eyes: Reports as per HPI and Reports no additional eye complaints Reports system reviewed and no additional complaints, except as documented Cardiovascular: Reports as per HPI and Reports no additional cardiovascular complaints Respiratory: Reports as per HPI and Reports no additional respiratory complaints Gastrointestinal: Reports as per HPI and Reports no additional gastrointestinal complaints Genitourinary: Reports no additional female genitourinary complaints Musculoskeletal: Reports no additional musculoskeletal complaints Skin/Breast: Reports system reviewed and no additional complaints, except as docu Psychiatric: Reports no additional psychiatric complaints Endocrine: Reports no additional endocrine complaints Hematologic/Lymphatic: Reports no additional hematologic/lymphatic complaints Allergic/Immunologic: Reports no additional allergic/immunologic complaints Reports system reviewed and no additional complaints, except as documented and Reports Abnormal speech present [facility] Past Medical History Medical History No known health problems Social History Social History Alcohol intake: current Alcohol intake frequency: does not drink Patient Tobacco Use Status: Never used Tobacco Advance Directives: No Patient : No Physical Exam ED Vital Signs: Vital Signs - 24 hr 10/30/23 04:06 10/30/23 05:54 Temperature 98.4 F 99.0 F Pulse Rate 86 91 Respiratory Rate 14 14 Blood Pressure 119/69 90/45 L Pulse Oximetry 98 99 Oxygen Delivery Method Room Air Room Air BMI result Body Mass Index 25.0 Vital signs have been reviewed and appear to be correct. Blood pressure elevated. Heart rate normal. Respiratory rate normal. Temperature normal. Oxygen saturation normal. Appearance: Alert. Oriented X3. No acute distress. Head: Normal external exam. Normocephalic. Atraumatic. No Moon signs noted. No raccoon eyes noted Eyes: PERRLA. EOMI. Conjunctiva and sclera normal. Eyelids normal. ENT: TM's Normal. Pharynx normal. Uvula midline. Moist mucous membranes. No trismus noted. No drooling noted. No muffled voice noted. Neck: Normal inspection. Neck supple. FROM. No adenopathy. Thyroid Normal. No meningeal signs. No neck mass noted. CVS: Normal heart rate and rhythm. Heart sound normal. No murmurs noted. Pulses normal throughout. Respiratory: No respiratory distress. Painless inspiration. Breath sounds normal. No wheezes/rales/rhonchi noted. Chest nontender. No accessory muscle usage noted or decreased air movement noted. Abdomen: Soft and nontender. Bowel sounds normal in all 4 quadrants. No distention noted. No organomegaly noted. No visible injury noted. Back: No CVA tenderness. Full range of motion noted. Skin: Skin warm and dry. Normal skin color. Normal skin turgor. No rashes/lesions/lacerations noted. Extremities: No lower extremity edema. Extremities exhibit normal range of motion. Extremities nontender. Neuro: Oriented X 3. Cranial nerve exam: II-XII are grossly intact No motor deficit. No sensory deficit. Reflexes normal. Course Reevaluation(s) Reevaluation #1: 37-year-old female history of IV drug abuse has been sober for few years presented with forehead cellulitis, CT revealed no discrete subcutaneous abscess, patient is li allergic to most of the antibiotic was given clindamycin IV in the ED with no apparent side effects. Patient will need admission for IV antibiotic add close monitoring since this consider a dangerous triangle. The underlying cause of forehead cellulitis is undetermined patient declined history of sinusitis. Time: 06:10 Medications Administered Discontinued Medications Generic Name Dose Route Start Last Admin Trade Name Freq PRN Reason Stop Dose Admin Sodium Chloride 1,000 mls @ 999 mls/hr 10/30/23 04:08 10/30/23 05:24 Ns IV 10/30/23 05:08 999 mls/hr .Q1H1M ONE Administration Clindamycin Phosphate 600 mg in 50 mls @ 100 mls/hr 10/30/23 04:14 10/30/23 05:24 Cleocin IV 10/30/23 04:43 100 mls/hr ONCE ONE Administration Lorazepam 1 mg 10/30/23 04:08 10/30/23 04:24 Lorazepam 1 Mg Tablet PO 10/30/23 04:09 1 mg ONCE ONE Administration Morphine Sulfate 1 mg 10/30/23 05:41 10/30/23 05:24 Morphine Sulfate 2 Mg/Ml Cartridge IVPUSH 10/30/23 05:42 1 mg ONCE ONE Administration Protocol Medical Decision Making Differential Diagnosis Differential Diagnoses: The differential diagnosis associated with the presentation includes (Subcutaneous abscess, facial cellulitis, gingivitis, dental infection, electrolyte derangement, severe anemia.) Admission/Observation Consideration of admission/observation: Escalation of care including admission/observation considered Consult Healthcare Provider Management of the patient was discussed with: Hospitalist (Dr. Lozano) Lab Data MDM Lab Attestation statement: I reviewed the patient's lab results. 10/30/23 04:47 10/30/23 04:47 Labs: Lab Results 10/30/23 Range/Units 04:47 WBC 10.4 (4.8-10.8) X10*3/uL RBC 4.46 (4.20-5.50) X10*6/uL Hgb 13.0 (12.0-16.0) g/dl Hct 38.0 (37.0-47.0) % MCV 85.2 (80.0-98.0) fL MCH 29.1 (27.0-33.0) pg MCHC 34.2 (31.0-35.0) g/dl RDW 12.6 (11.0-16.0) % Plt Count 198 (160-400) X10*3/uL MPV 9.0 L (9.4-12.3) fL Immature Gran % (Auto) 0.2 (0.0-0.4) % Neut % (Auto) 64.9 (45-73) % Lymph % (Auto) 27.5 (20-40) % [place] % (Auto) 6.6 (2-11) % Eos % (Auto) 0.6 (0-4) % Baso % (Auto) 0.2 (0-2) % Lymph # (Auto) 2.9 (1.2-4.9) X10*3/uL [place] # (Auto) 0.7 (0.1-1.2) X10*3/uL Eos # (Auto) 0.1 (0.0-0.4) X10*3/uL Baso # (Auto) 0.0 (0.0-0.2) X10*3/uL Abs Immat Gran (auto) 0.02 (0.00-0.03) X10*3/uL Absolute Neuts (auto) 6.7 (2.0-8.3) x10*3/uL Absolute Nucleated RBC 0.000 (0.0-0.012) X10*3/uL Nucleated RBC % (auto) 0.0 (0.0-0.2) /100WBC Sodium 135 (135-145) mmol/L Potassium 3.1 L (3.3-5.1) mmol/L Chloride 99 (96-108) mmol/L Carbon Dioxide 26 (22-29) mmol/L Anion Gap 13 (12-20) BUN 8 L (9-16) mg/dL Creatinine 0.65 (0.5-1.4) mg/dL Estim Creat Clear Calc 108.6 Estimated GFR > 60 Random Glucose 113 (60-115) mg/dL Lactic Acid 1.0 (0.5-2.0) mmol/L Calcium 9.7 (8.4-10.2) mg/dL Total Bilirubin 0.8 (0.0-1.0) mg/dL Direct Bilirubin 0.3 (0.0-0.5) mg/dL AST 43 H (5-31) U/L ALT 38 H (0-31) U/L Alkaline Phosphatase 74 (39-117) U/L Troponin I High Sens 4.6 (<3.5-17.0) ng/L Total Protein 8.4 H (6.5-8.0) g/dL Albumin 4.0 (3.5-5.0) g/dL Lipase 8 (8-78) U/L Independent Interpretation I performed an independent interpretation of an: CT Scan (Facial CT:Subcutaneous edema in the bilateral periorbital and inferior frontal region in keeping with history of cellulitis. No discrete collection identified. Milder subcutaneous edema in the bilateral zygomatic regions. ) Radiology Impression Discussion of test interpretation with radiology: I have reviewed the radiologist's reading. Discharge Plan Discharge Clinical Impression: Cellulitis of face Patient Disposition: Admitted As Inpatient Print Language: [place]
[2023-10-30] MEDS: LORazepam 1 MG TABLET PO ×2 (04:24→07:17)
[2023-10-30 04:54] LABS: Basophils Percent Auto 0.2 % (0-2); Eosinophils Absolute Auto 0.1 X10*3/uL (0.0-0.4); Eosinophils Percent Auto 0.6 % (0-4); Imm Gran Abs Auto 0.02 X10*3/uL (0.00-0.03); Imm Gran Pct Auto 0.2 % (0.0-0.4); Lymphocytes Absolute Auto 2.9 X10*3/uL (1.2-4.9); Lymphocytes Percent Auto 27.5 % (20-40); MANUAL DIFF FLAG NO; Mean Corpuscular HGB Conc 34.2 g/dl (31.0-35.0); Mean Corpuscular Hemoglobin 29.1 pg (27.0-33.0); Mean Corpuscular Volume 85.2 fL (80.0-98.0); Monocytes Absolute Auto 0.7 X10*3/uL (0.1-1.2); Monocytes Percent Auto 6.6 % (2-11); Neutrophils Absolute Auto 6.7 x10*3/uL (2.0-8.3); Neutrophils Percent Auto 64.9 % (45-73); Platelet Count 198 X10*3/uL (160-400); Red Blood Count 4.46 X10*6/uL (4.20-5.50); Red Cell Distribution Width 12.6 % (11.0-16.0); White Blood Count 10.4 X10*3/uL (4.8-10.8)
[2023-10-30 05:10] LABS: Alanine Aminotransferase 38 U/L (0-31); Alkaline Phosphatase 74 U/L (39-117); Anion Gap 13 (12-20); Aspartate Amino Transferase 43 U/L (5-31); Bilirubin Direct 0.3 mg/dL (0.0-0.5); Bilirubin Total 0.8 mg/dL (0.0-1.0); Blood Urea Nitrogen 8 mg/dL (9-16); Calcium 9.7 mg/dL (8.4-10.2); Carbon Dioxide 26 mmol/L (22-29); Chloride 99 mmol/L (96-108); Creatinine Clr Calc Pharmacy 108.6; Estimated Glomerular Filt Rate > 60; Glucose Random 113 mg/dL (60-115); Lipase 8 U/L (8-78); Potassium 3.1 mmol/L (3.3-5.1); Sodium 135 mmol/L (135-145); Total Protein 8.4 g/dL (6.5-8.0)
[2023-10-30 05:15] LABS: Troponin-I High Sensitivity 4.6 ng/L (<3.5-17.0)
[2023-10-30] MEDS: Morphine Sulfate 2 MG/ML CARTRIDGE 1 MG IVPUSH (05:24)
[2023-10-30] MEDS: Clindamycin Phosphate/D5W 600 MG/50 ML PIGGYBACK 100 MG IV (05:24)
[2023-10-30] MEDS: 0.9 % Sodium Chloride 1,000 ML 999 ML IV ×2 (05:24→07:17)
[2023-10-30 05:54] VITALS: BP 90/45; PULSE 91; RESP 14; TEMP 37.2; O2SAT 99
--- NOTE | 2023-10-30 06:16 | PC.NURSE ---
Blood cultures and labs collected during system downtime. 22G IV line placed on the left shoulde. Pt medicated after culture collection at 0524. Pt tolerated well.
[2023-10-30 06:19] LABS: Appearance Urine Clear; Color Urine Yellow; Glucose Urine UA Negative (Negative); Leukocyte Esterase Urine Small (1+) (Negative); Nitrite Urine Negative (Negative); PH 6.5 (5.0-9.0); Specific Gravity - Urine <= 1.005 (1.005-1.025); UMIC TRIGGER UACC YES; Urine Blood Negative (Negative); Urine Ketones Negative (Negative); Urine Protein Negative (Neg-Trace)
[2023-10-30 06:30] LABS: Bacteria Urine 3+ (None Seen); Hyaline Casts Urine 0-2 /LPF (0-2); RBC Urine 0-2 /HPF (0-2); Squamous Epithelial Cell Urine 0-2 /HPF (0-2); UACC Culture Trigger YES; WBC Urine 0-5 /HPF (0-5)
[2023-10-30 07:21] VITALS: BP 90/47; PULSE 80; RESP 12; TEMP 36.8; O2SAT 97
--- NOTE | 2023-10-30 07:35 | PC.NURSE ---
PT AWAKE AND ORIENTED, SHE IS ABLE TO GET OOB TO THE BEDSIDE COMMODE. VOID APPROX 400ML, IV FLUIDS INFUSING IN A LEFT ACW #22G , SHE WAS MEDICATED FOR ANXIETY. SHE IS TAKING PO FLUIDS AND EATING, BREAKFAST ORDERED. HER FACIAL EDEMA IS UNCHANGED PER PT.
--- NOTE | 2023-10-30 07:49 | PHA.MEDREC ---
Pharmacy Consult ? Medication Reconciliation Pharmacy has completed the medication reconciliation. Patient states she was on ativan 2mg bid prn anxiety and soma 350 tid prn muscle spasms but there is no claim history or pdmp info. Patient said she hasnt taken in awhile as she is out of refills
--- NOTE | 2023-10-30 09:05 | PC.NURSE ---
[facility]S [facility] WERE SEARCHES WITH SECURITY. PT WAS COOPERATIVE AND FORTHCOMING WITH SEARCH
--- NOTE | 2023-10-30 11:12 | PM.IMHP ---
History of Present Illness Date of Service: 10/30/23 Attending physician on admission: Chico Guidry Chief Complaint: facial swelling and pain This is a 37-year-old female with no significant past medical history presents to the emergency department with redness and swelling of her face. She states yesterday she noticed redness on her forehead which progressed to her bilateral eyes. She is unable to open her eyes. She denies eye pain, just swelling. She denies any associated fever or chills. Her forehead is tender to palpation. In the emergency department she was afebrile, lab work revealed no leukocytosis. She had CT scan of her facial bones which showed subcutaneous edema in the bilateral periorbital and inferior frontal region with no discrete fluid collection identified. She has documented allergy to doxycycline and penicillin and received a dose of IV clindamycin in the emergency department and the decision was made to admit her for further management of facial cellulitis. Review of Systems Review of Systems: Yes all other systems are reviewed and are negative Constitutional: Constitutional: Denies chills and Denies fever(s) Cardiovascular: Cardiovascular: Denies chest pain, Denies palpitations and Denies dyspnea Respiratory: Respiratory: Denies cough and Denies dyspnea Gastrointestinal: Gastrointestinal: Denies abdominal pain Endocrine: Endocrine: Denies palpitations [facility] Medical History (Updated 10/30/23 @ 11:22 by FILI Webster) Psoriasis No known health problems Social History (Updated 10/30/23 @ 11:22 by FILI Webster) Alcohol intake: current Alcohol intake frequency: does not drink Patient Tobacco Use Status: Current someday Tobacco user Cigarette Packs Per Day: 1 Smoked in Last 30 Days: Yes Use of substances other than those prescribed or required for medical reasons: Yes Substance Use Frequency: Chronic Longstanding Last Used Substance: Weeks (ago) Any prior treatment program specific to substance use: No Advance Directives: No Patient : No Meds Allergies Allergy/AdvReac Type Severity Reaction Status Date / Time amoxicillin [AMOXICILLIN] Allergy Unknown UNKNOWN Verified 10/30/23 04:08 doxycycline Allergy Unknown Gastrointestinal Verified 10/30/23 04:08 Upset Penicillins [PENICILLINS] Allergy Unknown UNKNOWN Verified 10/30/23 04:08 Active Medications: Current Medications Acetaminophen (Acetaminophen 325 Mg Tablet) 650 mg PO Q6H PRN PRN Reason: Pain, Mild (Pain Scale 1-3) Docusate Sodium (Docusate Sodium 100 Mg Capsule) 100 mg PO DAILY PRN PRN Reason: Constipation Enoxaparin Sodium (Enoxaparin Sodium 40 Mg/0.4 Ml Syringe) 40 mg SUBCUT Q24H [facility] Lactated Ringer's (Lr) 1,000 mls @ 125 mls/hr IVCONT .Q8H [facility] Ondansetron HCl (Ondansetron Hcl 4 Mg/2 Ml Vial) 4 mg IVPUSH Q8H PRN PRN Reason: Nausea and Vomiting Oxycodone HCl (Oxycodone Hcl Immed Release 5 Mg Tablet) 5 mg PO Q6H PRN PRN Reason: Pain, Severe (Pain Scale 7-10) Pharmacy Consult (Consult Rx Vancomycin Dosing) 1 each MISCELLANE DAILY PRN PRN Reason: Consult order Potassium Chloride (Potassium Chloride Packet 20 Meq Packet) 40 meq PO ONCE ONE Stop: 10/30/23 11:03 Sodium Chloride (0.9 % Sodium Chloride Flush 3 Ml Syringe) 3 [facility] Home Medications ?Medication ?Instructions ?Recorded ?Confirmed ?Last Taken ?Type No Known Home Meds 10/30/23 10/30/23 Unknown History Physical Exam Vital Signs and Narrative: Vital Signs: Last Vital Signs Temp 98.2 F 10/30/23 07:21 Pulse 80 10/30/23 07:21 Resp 12 10/30/23 07:21 BP 90/47 L 10/30/23 07:21 Pulse Ox 97 10/30/23 07:21 O2 Del Method Room Air 10/30/23 07:21 BMI result Body Mass Index 25.0 Const: General: comfortable, no acute distress, alert and awake Nutritional Appearance: average body habitus Orientation/consciousness: patient oriented x3 Resp: Effort & Inspection: normal respiratory effort, able to speak in complete sentences, no respiratory distress and no use of accessory muscles Cardio: Rate: regular rate GI: Inspection: No distended Palpation (GI): Soft to palpation and nontender Skin: Other: Neuro: General: patient oriented x3 and moves all extremities Extrem: General: Yes no pedal edema Results Labs 10/30/23 04:47 10/30/23 04:47 Labs: Laboratory Results - last 24 hr 10/30/23 10/30/23 04:47 06:13 MCV 85.2 MCH 29.1 MCHC 34.2 RDW 12.6 Plt Count 198 MPV 9.0 L Immature Gran % (Auto) 0.2 Neut % (Auto) 64.9 Lymph % (Auto) 27.5 [place] % (Auto) 6.6 Eos % (Auto) 0.6 Baso % (Auto) 0.2 Lymph # (Auto) 2.9 [place] # (Auto) 0.7 Eos # (Auto) 0.1 Baso # (Auto) 0.0 Abs Immat Gran (auto) 0.02 Absolute Neuts (auto) 6.7 Absolute Nucleated RBC 0.000 Nucleated RBC % (auto) 0.0 Anion Gap 13 Estim Creat Clear Calc 108.6 Estimated GFR > 60 Random Glucose 113 Lactic Acid 1.0 Calcium 9.7 Total Bilirubin 0.8 Direct Bilirubin 0.3 AST 43 H ALT 38 H Alkaline Phosphatase 74 Troponin I High Sens 4.6 Total Protein 8.4 H Albumin 4.0 Lipase 8 Urine Color Yellow Urine Appearance Clear Urine pH 6.5 Ur Specific [place] <= 1.005 Urine Protein Negative Urine Glucose (UA) Negative Urine Ketones Negative Urine Blood Negative Urine Nitrite Negative Ur Leukocyte Esterase Small (1+) H Urine RBC 0-2 Urine WBC 0-5 Ur Squamous Epith Cells 0-2 Urine Bacteria 3+ Hyaline Casts 0-2 Imaging Radiologist's Impressions: Impressions Face CT 10/30/23 04:25 IMPRESSION: Subcutaneous edema in the bilateral periorbital and inferior frontal region in keeping with history of cellulitis. No discrete collection identified. Milder subcutaneous edema in the bilateral zygomatic regions. Assessment and Plan (1) Cellulitis of face: Status: Acute Plan This is a 37-year-old female who presents to the emergency department with erythema and swelling of her face found to have facial cellulitis Facial cellulitis does not meet sepsis criteria CT facial bones without discrete fluid collection multiple antibiotic allergies, will start vancomycin ID consult Blood cultures pending low blood pressure likely due to pain medication, not due to sepsis. does not meet sirs criteria IVF follow closely hypokalemia replace and follow levels mild transaminitis no abdominal pain follow LFTs DVT ppx - lovenox Quality Stroke Does the patient have a stroke diagnosis?: No VTE Prior VTE?: No VTE Risk Level:: Medical - moderate - high VTE Device Contraindication: N/A - Device Ordered VTE Drug Contraindication: N/A - Med Ordered
[2023-10-30] MEDS: oxyCODONE HCl Immed Release 5 MG TABLET PO ×3 (11:25→17:33)
[2023-10-30] MEDS: Lactated Ringers 1,000 ML 125 ML IVCONT (11:25)
[2023-10-30] MEDS: Potassium Chloride Packet 20 MEQ PACKET 40 MEQ PO (11:25)
[2023-10-30 11:36] VITALS: BP 87/31; PULSE 65; RESP 12; O2SAT 97
[2023-10-30] MEDS: vancomycin HCL 1,000 MG, vancomycin HCL 750 MG in 0.9 % Sodium Chloride 500 ML 267.5 MG IV (12:38)
--- NOTE | 2023-10-30 13:44 | PHA.PROG ---
Admission Date/Time: October 30, 2023 11:02 Indication: SKIN Weight in k.039 kg Adjusted body weight in Kg: Foley body weight in Kg: Obesity Dosing Indication % IBW: Serum Creatinine - Last 168 Hours 10/30/23 04:47 Creatinine 0.65 Estimated CrCl and GFR - Last 168 Hours 10/30/23 04:47 Estim Creat Clear Calc 108.6 Estimated GFR > 60 Vancomycin Loading Dose: 1750 MG Current Vancomycin Dosing Regimen: 1000 MG Q12H Vancomycin Monitoring using AUC goal of 400 - 600 range with trough as surrogate marker: VHA=241 TROUGH=11.9 Date and Time for next Vancomycin Level to be drawn: 11/01/23 @1100 Pharmacist Comments on Vancomycin Plan: Vancomycin dosing will take advantage of [employer] as a clinical decision support tool that uses Bayesian modeling to calculate individual patient's pharmacokinetic parameters and forecast the patient's drug concentration time course with the target goal AUC 24 range of 400 - 600 mg/L/hr.
[2023-10-30 15:59] VITALS: BP 112/71; PULSE 78; RESP 16; TEMP 36.7; O2SAT 98
[2023-10-30] MEDS: LORazepam 0.5 MG TABLET PO (17:33)
--- NOTE | 2023-10-30 18:23 | PC.NURSE ---
Patient complaining of continued pain/agitation, wants additional pain medication. Inpatient provider notified, patient offered dose of morphine. Patient states no morphine doesn't work for me patient asked what she would like for pain medication, patient stated the largest dose of fentanyl possible. Patient informed that she cannot get fentanyl d/t vital signs, and has been given significant amount of pain medication. Provider Bria made aware, patient informed she is allowed to leave against medical advice, AMA paperwork signed, IV removed, patient encouraged to return to ER if eyes get more swollen or if any other medical problems arise.
[2023-10-30 18:27] VITALS: BP 112/71; PULSE 78; RESP 16; TEMP 36.7; O2SAT 98
--- NOTE | 2023-10-31 16:04 | W.PM.IDCN ---
History of Present Illness Data of Consult Service Date: 10/30/23 Requesting physician: Markel Paiz Primary Care Provider: None Physician HPI Reason for consult: face swelling She presents with swelling bilateral eyes. She has no fever or chills. She has some resolving redness. Review of Systems Review of Systems: Yes all other systems are reviewed and are negative [facility] Past Medical History Medical History (Updated 10/31/23 @ 16:09 by Юлия Raya MD) Swelling of face Psoriasis No known health problems Family History Family history: reviewed and not pertinent Social History Social History Alcohol intake: current Alcohol intake frequency: does not drink Patient Tobacco Use Status: Current someday Tobacco user Cigarette Packs Per Day: 1 Smoked in Last 30 Days: Yes Use of substances other than those prescribed or required for medical reasons: Yes Substance Use Frequency: Chronic Longstanding Last Used Substance: Weeks (ago) Any prior treatment program specific to substance use: No Advance Directives: No Patient : No Meds Allergies Allergy/AdvReac Type Severity Reaction Status Date / Time amoxicillin [AMOXICILLIN] Allergy Unknown UNKNOWN Verified 10/30/23 04:08 doxycycline Allergy Unknown Gastrointestinal Verified 10/30/23 04:08 Upset Penicillins [PENICILLINS] Allergy Unknown UNKNOWN Verified 10/30/23 04:08 Home Medications ?Medication ?Instructions ?Recorded ?Confirmed ?Last Taken ?Type No Known Home Meds 10/30/23 10/30/23 Unknown History Physical Exam Vital Signs: Vital Signs: Last Vital Signs Temp 98.1 F 10/30/23 18:27 Pulse 78 10/30/23 18:27 Resp 16 10/30/23 18:27 BP 112/71 10/30/23 18:27 Pulse Ox 98 10/30/23 18:27 O2 Del Method Room Air 10/30/23 18:27 BMI result Body Mass Index 25.0 Const: General: cooperative HEENT: Head: Yes normal to inspection Face and sinus: Yes normal facial exam Mouth: Normal oral and palatal mucosa present Teeth and gingiva: dentition normal Eyes: Other: facial swelling around eyes no erythema Pupils: Equal, round and reactive pupils present Resp: Effort & Inspection: normal respiratory effort Cardio: Rate: regular rate Rhythm: regular rhythm GI: Palpation (GI): Soft to palpation and nontender : General: Yes no CVA tenderness Back/Spine/Pelvis: Back: no CVA tenderness Skin: General skin exam: no rashes or lesions noted Neuro: General: moves all extremities Cranial nerves: Yes Equal, round and reactive pupils present Extrem: General: Yes normal to inspection Psych: Appearance: grossly normal Results Labs 10/30/23 04:47 10/30/23 04:47 Microbiology Microbiology Results: Microbiology 10/30/23 Unknown Urine clean catch - Urine andres top Urine Culture - Preliminary Gram negative annie 10/30/23 04:47 Blood - Venous Blood Culture - Preliminary No growth after 24 hours. 10/30/23 05:30 Blood - Venous Blood Culture - Preliminary No growth after 24 hours. Assessment and Plan (1) Swelling of face: Status: Acute Plan Eye swelling Likely allergic reaction,possibly due to pollen or inhaled drugs There is no cellulitis now Would give steroids such as Medrol dose pack. No further antibiotics necessary. Help with addiction. Check HIV and Hepatitis C.
--- NOTE | 2023-10-31 17:44 | PM.EVENT ---
Event Note Date of Service: 10/30/23 Event Note: Nurse informed me patient had elected to leave against medical advice final discharge diagnosis - probable allergic reaction causing eye/facial swelling, no cellulitis per ID - no antibiotics indicated hypokalemia, K replaced did not wait to speak with this provider prior to leaving AMA Time Spent With Patient Time: Total time managing care of this patient today ____ minutes.
== END 2023-10-30 18:39 | disposition left against medical advice (07) ==
LOC: HO.ED 05:59 → HO.EDOVER 11:09
PROVIDERS: Admitting Provider Physician Assistant Medical; Emergency Provider Emergency Medicine; Visit Provider Physician Assistant Medical
DX: R22.0 Localized swelling, mass and lump, head (principal); E87.6 Hypokalemia; R74.01 Elevation of levels of liver transaminase levels; R03.1 Nonspecific low blood-pressure reading; L40.9 Psoriasis, unspecified; Z53.29 Procedure and treatment not carried out because of patient's decision for other reasons
CPT/HCPCS: 36415; 70486; 80048; 80076; 81001; 83605; 83690; 84484; 85025; 87040; 87086; 87088; 87186; 96361; 96365; 96366; 96367; 96375; 99221; 99285; J0736; J2270; J3370; J7120

== ENCOUNTER → 2023-10-30 11:02 | Outpatient (BNV) | payer MEDICAID, SELFPAY | PROVIDERS: Admitting Provider Physician Assistant Medical; Emergency Provider Emergency Medicine; Visit Provider Internal Medicine | DX: R22.0 Localized swelling, mass and lump, head (principal) | CPT/HCPCS: 99222 ==

== ENCOUNTER → 2023-10-30 11:02 | Outpatient (BNV) | payer MEDICAID, SELFPAY | PROVIDERS: Admitting Provider Physician Assistant Medical; Emergency Provider Emergency Medicine; Visit Provider Physician Assistant Medical | DX: L03.211 Cellulitis of face (principal) | CPT/HCPCS: 99223; 99499 ==

== ENCOUNTER 2025-01-02 15:50 | Emergency (ER) | payer MEDICAID, SELFPAY ==
--- NOTE | ~2025-01-02 | XR_ITS ---
CLINICAL HISTORY: Left 5th finger pain, swelling 3 view left 5th digit Comparison: None Findings: Subtle transverse linear lucency in the distal phalanx. No significant loss of joint space or osteophytes. No erosions. No radiopaque foreign body. There is soft tissue edema of the finger. IMPRESSION: Subtle linear lucency of the base of distal phalanx. Acute nondisplaced fracture can not be excluded. This document has been electronically signed by: Román Carrillo MD on 01/02/2025 17:47:29
--- NOTE | ~2025-01-02 | XR_ITS ---
CLINICAL HISTORY: Tackled by police thoracic lumbar vertebral pain --- Additional Notes or Special Instructions: R O vertebral fracture 4 views lumbar spine Comparison: None provided Findings: Normal alignment. Mild loss height of L1 vertebral body. No significant degenerative change. IMPRESSION: Mild loss height of L1 vertebral body. This document has been electronically signed by: Román Carrillo MD on 01/02/2025 17:43:15
--- NOTE | ~2025-01-02 | XR_ITS ---
CLINICAL HISTORY: Tackled by police thoracic lumbar vertebral pain --- Additional Notes or Special Instructions: R O fracture 3 views thoracic spine Comparison: None provided Findings: Evaluation is limited by scoliosis. Limited evaluation of the upper thoracic spine on the lateral view due to overlapping structures. No acute fractures or dislocation. No significant degenerative change. IMPRESSION: No acute findings. This document has been electronically signed by: Román Carrillo MD on 01/02/2025 17:39:28
[2025-01-02 15:53] VITALS: BP 106/66; PULSE 86; O2SAT 97
[2025-01-02 15:55] VITALS: BP 125/87; PULSE 98; RESP 20; O2SAT 98; BMI 19.6
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
[2025-01-02] MEDS: LORazepam 1 MG TABLET PO (16:36)
[2025-01-02] MEDS: Bacitracin Oint 0.9 GM PACKET 1 APPL TOPICAL (16:36)
[2025-01-02] MEDS: Acetaminophen 325 MG TABLET 975 MG PO (16:36)
[2025-01-02] MEDS: oxyCODONE HCl Immed Release 5 MG TABLET 10 MG PO (16:36)
[2025-01-02 18:45] VITALS: BP 99/61; PULSE 80; RESP 17; TEMP 36.2; O2SAT 97
[2025-01-02] MEDS: Ibuprofen 400 MG TABLET PO (19:04)
[2025-01-02 19:15] VITALS: BP 117/80; PULSE 72; RESP 14; TEMP 36.8; O2SAT 99
== END 2025-01-02 19:26 ==
PROVIDERS: Emergency Provider Emergency Medicine Emergency Medical Services; PCP Family Medicine
DX: S00.81XA Abrasion of other part of head, initial encounter (principal); S30.0XXA Contusion of lower back and pelvis, initial encounter; S20.223A Contusion of bilateral back wall of thorax, initial encounter; S62.667A Nondisplaced fracture of distal phalanx of left little finger, initial encounter for closed fracture; M79.642 Pain in left hand; M54.50 Low back pain, unspecified; M54.6 Pain in thoracic spine; F17.210 Nicotine dependence, cigarettes, uncomplicated; X50.1XXA Overexertion from prolonged static or awkward postures, initial encounter; Y93.9 Activity, unspecified; Y92.9 Unspecified place or not applicable; Y99.8 Other external cause status
CPT/HCPCS: 72070; 72100; 73140; 99283; 99284

== ENCOUNTER → 2025-01-02 16:18 | Outpatient (BNV) | payer MEDICAID, SELFPAY | PROVIDERS: Emergency Provider Emergency Medicine Emergency Medical Services; PCP Family Medicine; Visit Provider Nuclear Medicine | DX: M54.6 Pain in thoracic spine (principal); M79.645 Pain in left finger(s); R22.32 Localized swelling, mass and lump, left upper limb; Y35.93XA Legal intervention, means unspecified, suspect injured, initial encounter | CPT/HCPCS: 72070; 72100; 73140 ==